=== PATIENT | female | born 1995 | race Hispanic/Latino ===

== ENCOUNTER 2023-01-23 20:55 | Day surgery (SDC) | payer OTHER ==
[2023-01-23 21:23] VITALS: BMI 36.3
[2023-01-23] MEDS ORDERED: hydrALAZINE 20 MG/ML VIAL SLOW IVP PRN (21:44)
== END 2023-01-23 22:50 | disposition home or self-care (01) ==
LOC: CSHLD/OP 20:55
PROVIDERS: ATTEND Family Medicine
DX: O47.1 False labor at or after 37 completed weeks of gestation (principal); Z79.899 Other long term (current) drug therapy; Z3A.38 38 weeks gestation of pregnancy; Z04.1 Encounter for examination and observation following transport accident; V09.20XA Pedestrian injured in traffic accident involving unspecified motor vehicles, initial encounter
CPT/HCPCS: 99283

== ENCOUNTER 2023-01-28 15:44 | Inpatient (IN) | payer OTHER ==
[~2023-01-28 15:44] MED LIST: Bupivacaine 0.25% HCL 30 ML VIAL ONE
[2023-01-28 16:12] VITALS: BMI 36.8
[2023-01-28 17:33] LABS: Hematocrit 37.2 % (34.9-44.5); Hemoglobin 12.8 g/dL (12.0-15.5); Mean Corpuscular HGB CONC 34.4 g/dL (32.0-36.0); Mean Corpuscular Hemoglobin 29.6 pg (27.0-33.0); Mean Corpuscular Volume 86.1 fl (81.6-98.3); Mean Platelet Volume 10.9 fl (7.4-10.4); Platelet Count 263 10x3/uL (150-450); RBC Distribution Width 13.7 % (11.5-14.5); Red Blood Cell (RBC) Count 4.32 10x6/uL (3.90-5.03); White Blood Cell (WBC) Count 10.5 10x3/uL (3.5-10.5)
[2023-01-28 17:56] LABS: HBSAg Index 0.16 S/CO (0-0.99); Hep B Surf Ag - L&D Non-Reactive S/CO (NonReactive); Syphilis Antibody Nonreactive (Nonreactive); Syphilis Antibody Index 0.06 S/CO (<1.00 Non-Reactive)
[2023-01-28] MEDS ORDERED: Diphenoxylate HCl/Atropine Tablet PO PRN (18:15)
[2023-01-28] MEDS ORDERED: Ibuprofen 800 MG TAB PO PRN (18:15)
[2023-01-28] MEDS ORDERED: Lidocaine 1% (PF) 30 ML VIAL SC PRN (18:15)
[2023-01-28] MEDS ORDERED: Ondansetron PF 4 MG/2 ML Vial IVP PRN ×2 (18:15→21:47)
[2023-01-28] MEDS ORDERED: Acetaminophen 500 MG TAB PO PRN (18:15)
[2023-01-28] MEDS ORDERED: Misoprostol 200 MCG TAB RC PRN (18:15)
[2023-01-28] MEDS ORDERED: Oxytocin 30 units/NS 500 ML 500 ML IVPB SCH (18:15)
[2023-01-28] MEDS ORDERED: Oxytocin 30 units/NS 500 ML 500 ML IV SCH (18:15)
[2023-01-28] MEDS ORDERED: hydrALAZINE 20 MG/ML VIAL SLOW IVP PRN (18:15)
[2023-01-28] MEDS ORDERED: Promethazine HCl 25 MG/ML VIAL IM PRN ×2 (18:15→21:47)
[2023-01-28] MEDS ORDERED: Carboprost 250 MCG/ML AMP IM PRN (18:15)
[2023-01-28] MEDS ORDERED: Lactated Ringer's 1,000 ML IV SCH (18:15)
[2023-01-28] MEDS ORDERED: Methylergonovine 0.2 MG/ML VIAL IM PRN (18:15)
[2023-01-28] MEDS ORDERED: fentaNYL 50 mcg/mL 1 mL Vial ONE (20:52)
[2023-01-28] MEDS ORDERED: fentaNYL 50 mcg/mL 1 mL Vial SLOW IVP PRN (20:55)
[2023-01-28] MEDS ORDERED: fentaNYL/Ropivacaine Epidural 100 ML ONE (21:15)
[2023-01-28] MEDS ORDERED: Naloxone HCl 0.4 mg/ml Vial IVP PRN ×2 (21:47)
[2023-01-28] MEDS ORDERED: Lactated Ringer's 500 ML IV PRN (21:47)
[2023-01-28] MEDS ORDERED: Acetaminophen 325 MG TAB PO PRN (21:47)
[2023-01-28] MEDS ORDERED: Moisturizing Cream (Eucerin) 113 GM JAR TOP PRN (21:47)
[2023-01-28] MEDS ORDERED: ePHEDrine Sulfate 50 MG/10 ML VIAL SLOW IVP PRN (21:47)
[2023-01-28] MEDS ORDERED: diphenhydrAMINE 50 MG/ML VIAL IVP PRN (21:47)
[2023-01-28] MEDS ORDERED: Communication Order-Pharmacy FS SCH (22:00)
[2023-01-28] MEDS ORDERED: fentaNYL 2 mcg/Ropivacaine 0.2% Epidural 100 ML CADD EPIDURAL SCH (22:00)
[2023-01-29] MEDS ORDERED: Preparation H Ointment 28 GM TUBE PR PRN (01:28)
[2023-01-29] MEDS ORDERED: Bisacodyl 10 MG SUPP PR PRN (01:28)
[2023-01-29] MEDS ORDERED: hydrALAZINE 20 MG/ML VIAL SLOW IVP PRN (01:28)
[2023-01-29] MEDS ORDERED: Benzocaine-Menthol 82.5 ML CAN TOP PRN (01:28)
[2023-01-29] MEDS ORDERED: Lanolin Ointment 7 GM TUBE TOP PRN (01:28)
[2023-01-29] MEDS ORDERED: Boostrix 0.5 ML (Tdap) VIAL (>/=7 yrs of age) IM ONE (01:28)
[2023-01-29] MEDS ORDERED: Promethazine HCl 25 MG/ML VIAL IM PRN (01:28)
[2023-01-29] MEDS ORDERED: Ondansetron PF 4 MG/2 ML Vial IVP PRN (01:28)
[2023-01-29] MEDS ORDERED: Milk Of Magnesia 30 ML UDCUP PO PRN (01:28)
[2023-01-29] MEDS ORDERED: diphenhydrAMINE 25 MG CAP PO PRN (01:28)
[2023-01-29] MEDS ORDERED: HYDROcodone/Acetaminophen 5/325 mg Tablet PO PRN (01:28)
[2023-01-29] MEDS: Ibuprofen 800 MG TAB PO SCH ×3 (05:18→20:58)
[2023-01-29] MEDS: Docusate 100 MG CAP PO SCH ×2 (08:47→20:58)
[2023-01-29] MEDS: Prenatal Vitamin 1 TAB PO SCH (08:47)
[2023-01-29] MEDS: Ferrous Sulfate 325 MG TAB PO SCH ×2 (08:50→16:41)
[2023-01-30] MEDS: Ibuprofen 800 MG TAB PO SCH (06:32)
[2023-01-30 07:37] VITALS: BP 123/76; TEMP 98
[2023-01-30] MEDS: Ferrous Sulfate 325 MG TAB PO SCH (08:01)
[2023-01-30] MEDS: Prenatal Vitamin 1 TAB PO SCH (09:33)
[2023-01-30] MEDS: Docusate 100 MG CAP PO SCH (09:33)
== END 2023-01-30 12:15 | disposition home or self-care (01) | DRG 807 ==
LOC: CSHLD/OP 15:44 → CSHLD 17:17 → CSHPP 01-29 01:00
PROVIDERS: ADMIT Family Medicine; ATTEND Family Medicine
PROC: 10E0XZZ Delivery of Products of Conception, External Approach (ICD-10-PCS; principal; 2023-01-28)
PROC: 0HQ9XZZ Repair Perineum Skin, External Approach (ICD-10-PCS; 2023-01-28)
DX: O69.81X0 Labor and delivery complicated by cord around neck, without compression, not applicable or unspecified (principal); Z37.0 Single live birth; O70.0 First degree perineal laceration during delivery; Z3A.39 39 weeks gestation of pregnancy
CPT/HCPCS: 36415; 36416; 51702; 85027; 86780; 86850; 86900; 86901; 87340; 99285; J2590; J3010; S0020

== ENCOUNTER 2024-02-02 02:38 | Emergency (ER) | payer OTHER ==
[2024-02-02 03:26] LABS: Clarity Clear (Clear); Specific Gravity, Urine 1.025 (1.005-1.030)
[2024-02-02 03:34] LABS: Glucose, Urine (Dipstick) Unable to Interpret mg/dL (Negative); Leukocyte Unable to Interpret (Negative); Nitrite Unable to Interpret (Negative); Protein, Urine (Dipstick) Unable to Interpret mg/dl (Neg-Trace)
[2024-02-02 03:35] LABS: Bilirubin Unable to Interpret (Negative); Blood, Urine Unable to Interpret (Negative); Ketone, Urine Unable to Interpret mg/dL (Negative); Urobilinogen UNABLE TO INTERPRET mg/dL (Less than 2)
[2024-02-02 03:37] LABS: Bacteria/HPF 2+ HPF (None Seen); CAUTI Indications for Culture Pregnancy; RBC/HPF 0-3 HPF (0-3); Squamous Epithelial 0-3 HPF (0-3)
[2024-02-02 03:39] LABS: Calcium Oxalate Crystals 1+ HPF (None Seen)
[2024-02-02 03:40] LABS: Urine Culture Reflex Yes Yes
== END 2024-02-02 04:01 | disposition home or self-care (01) ==
LOC: CSHERS 02:38
DX: O23.92 Unspecified genitourinary tract infection in pregnancy, second trimester (principal); R82.71 Bacteriuria; O99.891 Other specified diseases and conditions complicating pregnancy; R10.30 Lower abdominal pain, unspecified; Z3A.16 16 weeks gestation of pregnancy
CPT/HCPCS: 81001; 87086

== ENCOUNTER 2024-06-18 21:02 | Inpatient (IN) | payer OTHER ==
[2024-06-18 21:29] VITALS: BMI 33.1
[2024-06-18] MEDS ORDERED: Ibuprofen 800 MG TAB PO PRN (22:43)
[2024-06-18] MEDS ORDERED: HYDROcodone/Acetaminophen 5/325 mg Tablet PO PRN (22:43)
[2024-06-18] MEDS ORDERED: Ondansetron PF 4 MG/2 ML Vial IVP PRN (22:43)
[2024-06-18] MEDS ORDERED: Diphenoxylate HCl/Atropine Tablet PO PRN (22:43)
[2024-06-18] MEDS ORDERED: Misoprostol 200 MCG TAB PR PRN (22:43)
[2024-06-18] MEDS ORDERED: Methylergonovine 0.2 MG/ML VIAL IM PRN (22:43)
[2024-06-18] MEDS ORDERED: Butorphanol Tartrate 1 MG/ML VIAL SLOW IVP PRN (22:43)
[2024-06-18] MEDS ORDERED: hydrALAZINE 20 MG/ML VIAL SLOW IVP PRN (22:43)
[2024-06-18] MEDS ORDERED: Carboprost 250 MCG/ML AMP IM PRN (22:43)
[2024-06-18] MEDS ORDERED: Lidocaine 1% (PF) 30 ML VIAL SC PRN (22:43)
[2024-06-18] MEDS ORDERED: Promethazine HCl 25 MG/ML VIAL IM PRN (22:43)
[2024-06-18] MEDS ORDERED: Tranexamic Acid 1,000 MG/10 ML VIAL IVP PRN (22:43)
[2024-06-18] MEDS ORDERED: Acetaminophen 500 MG TAB PO PRN (22:43)
[2024-06-18] MEDS ORDERED: Oxytocin 30 units/NS 500 ML 500 ML IV SCH ×2 (22:45)
[2024-06-18 22:53] LABS: Hematocrit 39.5 % (34.9-44.5); Hemoglobin 13.4 g/dL (12.0-15.5); Mean Corpuscular HGB CONC 33.9 g/dL (32.0-36.0); Mean Corpuscular Hemoglobin 29.4 pg (27.0-33.0); Mean Corpuscular Volume 86.6 fL (81.6-98.3); Mean Platelet Volume 11.3 fL (7.4-10.4); Platelet Count 256 10x3/uL (150-450); RBC Distribution Width 12.9 % (11.5-14.5); Red Blood Cell (RBC) Count 4.56 10x6/uL (3.90-5.03); White Blood Cell (WBC) Count 10.15 10x3/uL (3.5-10.5)
[2024-06-18 23:23] LABS: Syphilis Antibody Nonreactive (Nonreactive); Syphilis Antibody Index 0.09 S/CO (<1.00 Non-Reactive)
[2024-06-18 23:24] LABS: HBsAg Index 0.17 S/CO (0-0.99); Hep B Surf Ag - L&D Non-Reactive S/CO (NonReactive)
[2024-06-18 23:33] LABS: Glucose 66 mg/dL (70-105)
[2024-06-19] MEDS: Lactated Ringer's 1,000 ML IV SCH ×2 (10:42→16:57)
[2024-06-19] MEDS: Oxytocin 30 units/NS 500 ML 500 ML IV SCH (10:42)
[2024-06-19] MEDS: fentaNYL/Ropivacaine Epidural 100 ML ONE (11:58)
[2024-06-19] MEDS ORDERED: Bupivacaine/Epinephrine 0.25% 30 ML VIAL ONE (13:00)
[2024-06-19] MEDS ORDERED: Lanolin Ointment 7 GM TUBE TOP PRN (16:54)
[2024-06-19] MEDS ORDERED: Bisacodyl 10 MG SUPP PR PRN (16:54)
[2024-06-19] MEDS ORDERED: Ondansetron PF 4 MG/2 ML Vial IVP PRN (16:54)
[2024-06-19] MEDS ORDERED: Preparation H Ointment 28 GM TUBE PR PRN (16:54)
[2024-06-19] MEDS ORDERED: hydrALAZINE 20 MG/ML VIAL SLOW IVP PRN (16:54)
[2024-06-19] MEDS ORDERED: Milk Of Magnesia 30 ML UDCUP PO PRN (16:54)
[2024-06-19] MEDS ORDERED: diphenhydrAMINE 25 MG CAP PO PRN (16:54)
[2024-06-19] MEDS: Ferrous Sulfate 325 MG TAB PO SCH (17:01)
[2024-06-19] MEDS: Boostrix 0.5 ML (Tdap) VIAL (>/=7 yrs of age) IM ONE (17:01)
[2024-06-19] MEDS: Ibuprofen 800 MG TAB PO SCH (17:17)
[2024-06-19] MEDS: Docusate 100 MG CAP PO SCH (21:23)
[2024-06-20] MEDS: Prenatal Vitamin 1 TAB PO SCH (09:21)
[2024-06-20] MEDS: HYDROcodone/Acetaminophen 5/325 mg Tablet PO PRN (21:29)
[2024-06-21 08:57] VITALS: BP 127/78; TEMP 98.1
== END 2024-06-21 17:40 | disposition home or self-care (01) | DRG 807 ==
LOC: CSHLD 21:02 → CSHPP 06-19 16:15
PROVIDERS: ADMIT Family Medicine; ATTEND Family Medicine
PROC: 10E0XZZ Delivery of Products of Conception, External Approach (ICD-10-PCS; principal; 2024-06-19)
PROC: 10907ZC Drainage of Amniotic Fluid, Therapeutic from Products of Conception, Via Natural or Artificial Opening (ICD-10-PCS; 2024-06-19)
PROC: 3E033VJ Introduction of Other Hormone into Peripheral Vein, Percutaneous Approach (ICD-10-PCS; 2024-06-19)
DX: O36.8130 Decreased fetal movements, third trimester, not applicable or unspecified (principal); Z37.0 Single live birth; O36.5930 Maternal care for other known or suspected poor fetal growth, third trimester, not applicable or unspecified; Z3A.36 36 weeks gestation of pregnancy; O76 Abnormality in fetal heart rate and rhythm complicating labor and delivery; Z79.82 Long term (current) use of aspirin; O24.420 Gestational diabetes mellitus in childbirth, diet controlled
CPT/HCPCS: 36416; 51702; 82947; 85027; 86780; 86850; 86900; 86901; 87340; J2590; J7120